=== PATIENT | male | born 2000 | race Caucasian/White ===

== ENCOUNTER 2022-09-07 15:54 | Emergency (ER) | payer OTHER, SELFPAY ==
[2022-09-07 16:05] VITALS: BP 156/98; PULSE 100; RESP 20; TEMP 36.9; O2SAT 97; BMI 24.1
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
--- NOTE | 2022-09-07 16:15 | XR_ITS ---
[place] [id number] Patient Name: YORDAN CANDELARIA MRN: [id number] date: 2000 Sex: M Assigned Patient Location: ER Current Patient Location: ER Accession/Order Number: [id number] Exam Date: 09/07/2022 16:45 Report Date: 09/07/2022 17:23 At the request of: KUSH GALO Procedure: XR pelvis 1-2V PROCEDURE: XR pelvis 1-2V DATE: 09/07/2022 3:45 PM CDT COMPARISONS: None CLINICAL INDICATION: pain FINDINGS: There is no evidence of fractures or other osseous abnormalities. IMPRESSION: AP pelvis radiograph shows no evidence of abnormalities. Electronically authenticated by: GABI WISEMAN Date: 09/07/2022 17:23
== END 2022-09-07 18:17 | disposition home or self-care (01) ==
PROVIDERS: Emergency Provider Emergency Medicine
DX: S13.4XXA Sprain of ligaments of cervical spine, initial encounter (principal); V43.52XA Car driver injured in collision with other type car in traffic accident, initial encounter
CPT/HCPCS: 70450; 71045; 72125; 72170; 99284